=== PATIENT | male | born 1960 | race Two or more races ===

== ENCOUNTER 2020-08-19 13:45 | Emergency (ER) | payer OTHER ==
[~2020-08-19] VITALS: Ht 172.7 cm; Wt 83.9 kg
[2020-08-19] MEDS ORDERED: PROAIR HFA8.5 GM IH (13:56)
[2020-08-19] MEDS ORDERED: CALAN SR120 MG PO (13:56)
[2020-08-19] MEDS ORDERED: HYDRODIURIL12.5 MG PO (13:58)
[2020-08-19] MEDS ORDERED: EFFEXOR XR37.5 MG PO (13:59)
== END 2020-08-19 20:55 | disposition home or self-care (01) ==
LOC: ER 13:45
DX: J45.901 Unspecified asthma with (acute) exacerbation (principal); J45.998 Other asthma; R06.02 Shortness of breath; Z20.822 Contact with and (suspected) exposure to COVID-19